=== PATIENT | male | born 1945 | race Caucasian/White ===

== ENCOUNTER 2019-04-29 13:50 | Outpatient (CLI) | payer MEDICARE, OTHER | END 2019-04-29 23:59 | disposition home or self-care (01) | LOC: RAD 13:50 | PROVIDERS: ATTEND Otolaryngology | DX: R13.10 Dysphagia, unspecified (principal) | CPT/HCPCS: 74230 ==

== ENCOUNTER → 2021-03-16 | Outpatient (CLI) | payer MEDICARE, OTHER | END | disposition home or self-care (01) | LOC: RAD 13:09 | PROVIDERS: ATTEND Internal Medicine | DX: R13.10 Dysphagia, unspecified (principal) | CPT/HCPCS: 74230 ==

== ENCOUNTER 2024-04-29 13:24 | Outpatient (CLI) | payer MEDICARE, OTHER | END 2024-04-29 23:59 | disposition home or self-care (01) | LOC: RAD 13:24 | PROVIDERS: ATTEND Otolaryngology | DX: R13.14 Dysphagia, pharyngoesophageal phase (principal); R49.0 Dysphonia | CPT/HCPCS: 74230 ==